=== PATIENT | female | born 1980 | race Caucasian/White ===

== ENCOUNTER 2016-11-28 16:38 | Inpatient (IN) | payer OTHER ==
[~2016-11-28] VITALS: Ht 170.2 cm; Wt 71.0 kg
[2016-11-28] MEDS ORDERED: POTA99TA PO (17:44)
[2016-11-28] MEDS ORDERED: SYNT88TA2 PO (17:44)
[2016-11-28] MEDS ORDERED: ESCI10TA2 PO (17:44)
[2016-11-28] MEDS ORDERED: OLANZapine 5 MG TAB PO PRN (19:15)
[2016-11-28] MEDS ORDERED: MAALOX 30 ML SUSP *UDC PO PRN (19:15)
[2016-11-28] MEDS ORDERED: QUEtiapine FUMARATE 100 MG TAB PO SCH (21:00)
[2016-11-28] MEDS: PALIPERIDONE 3 MG ER TAB (INVEGA) PO SCH (21:00)
[2016-11-28 21:25] VITALS: BP 136/92
[2016-11-29] MEDS: LEVOTHYROXINE 88MCG TABLET (0.088 MG) PO SCH (05:59)
[2016-11-29 06:42] VITALS: BP 138/88
[2016-11-29] MEDS: OMEPRAZOLE 20 MG CAP PO SCH ×2 (09:00→10:51)
[2016-11-29] MEDS: TOPIRAMATE (TopAMAX) 25 MG TAB PO SCH ×2 (09:00→10:51)
[2016-11-29] MEDS: PALIPERIDONE 3 MG ER TAB (INVEGA) PO SCH ×3 (09:00→21:30)
[2016-11-29] MEDS: ESCITALOPRAM OXALATE 10 MG TAB (LEXAPRO) PO SCH ×2 (09:00→10:51)
--- NOTE | 2016-11-29 09:19 | HPEPDOC ---
[facility] Medical History & Physical Date of Admission Nov 28, 2016 History and Physical PCP: none ATTENDING: Dr. Jorge Luis Blackburn HPI: 36yoF transferred from [facility] admitted to [facility] for unspecified psychotic disorder, being medically examined today. Pt is declining to participate with history or PE at this time. History is taken from the chart. PMHx: Hypothyroid GERD Depression Anxiety Insomnia Hypokalemia PSHX: facial surgery oral surgery SOCHX: Resides in: [facility] Marital Status: single Tobacco use: former smoker ETOH: denies Illicit Drugs: Denies IV Drug Use: Denies Tattoos done unprofessionally: Denies FAMHX: pt declines to provide history. ROS: Pt declines to provide history and remarkable only for LMP unknown. PE: Pt declines to participate with exam at this time. [facility]. WBC 6.69 RBC 4.34 Hgb 13.1 HCT 38.9 PLT 183 GLUC 132 BUN 9 SCr 1.080 Cl 102 Na 138 K 3.2 Ca 9.1 ALT 16 AST 17 TSH 5.830 HCG neg toxicology unremarkable. EKG: pending A&P: 36yoF transferred from [facility] admitted to [facility] for unspecified psychotic disorder 1. Psych. Plan per Psychiatry. Obtain baseline EKG to assure the safety of psychiatric medications as they can prolong the QT interval. 2. Follow up. No Primary Care Provider. Will attempt to establish PCP on discharge. 3. Hypothyroid. Continue supplement. TSH noted to be abnormal. Possibly non compliant with supplement. Will recheck TFTs. 4. GERD. Continue PPI. 5. Hypokalemia. Continue supplement. Recheck BMP. 6. Staff member Josephine assisted in attempting to request Pt participate with exam. Vital Signs Vital Signs Date Time Temp Pulse Resp B/P (MAP) Pulse Ox O2 Delivery O2 Flow Rate FiO2 11/29/16 06:42 98.6 89 16 138/88 (105) Room Air 11/28/16 21:25 98 Home Medications Scheduled Escitalopram Oxalate (Escitalopram Oxalate) 10 Mg Tab, 10 MG PO DAILY Levothyroxine Sodium (Synthroid) 88 Mcg Tab, 88 MCG PO DAILY Potassium (Potassium) 99 Mg Tab, 99 MG PO QHS Allergies Coded Allergies: No Known Allergies (Unverified , 11/28/16) Lizz Barber Nov 29, 2016 09:19
[2016-11-29] MEDS ORDERED: HALOPERIDOL 5 MG TAB PO PRN (10:00)
[2016-11-29] MEDS ORDERED: diphenhydrAMINE 50 MG CAP PO PRN ×2 (10:00→17:45)
[2016-11-29] MEDS ORDERED: hydrOXYzine 50 MG TAB PO PRN (10:15)
[2016-11-29] MEDS ORDERED: traZODone 50 MG TAB PO PRN (10:15)
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
[2016-11-29] MEDS: POTASSIUM CHLORIDE 10 MEQ SR TABLET PO SCH (10:51)
[2016-11-29 18:00] VITALS: BP 122/83
[2016-11-30 06:00] VITALS: BP 118/60
[2016-11-30] MEDS: LEVOTHYROXINE 88MCG TABLET (0.088 MG) PO SCH (06:01)
--- NOTE | 2016-11-30 07:01 | ECGEPIP ---
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
[2016-11-30] MEDS: ESCITALOPRAM OXALATE 10 MG TAB (LEXAPRO) PO SCH (09:00)
[2016-11-30] MEDS: POTASSIUM CHLORIDE 10 MEQ SR TABLET PO SCH (09:00)
[2016-11-30] MEDS: PALIPERIDONE 3 MG ER TAB (INVEGA) PO SCH ×2 (09:00→20:43)
[2016-11-30] MEDS: OMEPRAZOLE 20 MG CAP PO SCH (09:00)
[2016-11-30 09:13] LABS: ANION GAP 8 MEQ/L (8-16); BLOOD UREA NITROGEN 6 MG/DL (7-18); CALCIUM LEVEL 9.8 MG/DL (8.5-10.1); CARBON DIOXIDE LEVEL 28 MEQ/L (21-32); CHLORIDE LEVEL 103 MEQ/L (98-107); CREATININE FOR GFR 1.03 MG/DL (0.55-1.02); GLOMERULAR FILTRATION RATE > 60.0 (>60); GLUCOSE, FASTING 140 MG/DL (70-105); POTASSIUM SERUM 3.8 MEQ/L (3.5-5.1); SODIUM LEVEL 139 MEQ/L (136-145); T UPTAKE 37 % (30-39); THYROXINE (T4) 10.4 UG/DL (4.5-12.0)
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
[2016-11-30 18:00] VITALS: BP 122/78
[2016-11-30] MEDS: ACETAMINOPHEN TAB 650MG DOSE (2X325MG) PO PRN (19:20)
[2016-12-01] MEDS: LEVOTHYROXINE 88MCG TABLET (0.088 MG) PO SCH (06:13)
[2016-12-01 06:35] VITALS: BP 112/64
--- NOTE | 2016-12-01 08:35 | IPNPDOC ---
Date Seen The patient was seen on 12/01/16. Progress Note PCP: none ATTENDING: Dr. Jorge Luis Blackburn HPI: 36yoF transferred from [facility] admitted to [facility] for unspecified psychotic disorder, being medically examined today. Pt is reporting that she has noted left flank pain radiating to the left abdomen area. She has also noted dysuria. She denies hematuria, frequency, urgency. She denies fevers or chills. She denies nausea, vomiting, diarrhea, constipation. She has been eating and drinking. PMHx: Hypothyroid GERD Depression Anxiety Insomnia Hypokalemia PSHX: facial surgery oral surgery PE: GEN: 36yoF, appears stated age. No acute distress. Alert and oriented x 3. Anxious appearing. HEENT: Normocephalic, atraumatic. Pupils are equal, round, and reactive to light. Extraocular movements are intact. No nystagmus appreciated. Sclera are nonicteric. Conjunctiva without injection. Nose midline. Nasal turbinates without bogginess. No facial asymmetry. Moist mucous membranes. Dentition fair. Pharynx pink and moist, no cobblestoning. Neck supple, trachea midline. No lymphadenopathy or thyromegaly appreciated. CHEST: Regular rate and rhythm, +S1, +S2 LUNGS: Clear to auscultation bilaterally. No wheezes, rales, or rhonchi. Breathing appears symmetric and easy. Patient is speaking in full sentences. No accessory muscle use. ABD: Round, soft, TTP LUQ/LLQ, non-distended. +Bowel sounds throughout. No rebound or guarding. Left Costovertebral angle tenderness noted. EXT: Pulses 2+ bilaterally dorsalis pedis and radial. No lower extremity edema appreciated. SKIN: Many, dry, warm. Capillary refill <2sec. No rashes. NEURO: Alert and oriented x 3. Cranial nerves III-XII are intact. No focal deficits appreciated. EKG 11/29/16 SINUS RHYTHM LEFT AXIS DEVIATION Left anterior fascicular block NO PRIOR NSSTTWA A&P: 36yoF transferred from [facility] admitted to [facility] for unspecified psychotic disorder 1. Psych. Plan per Psychiatry. EKG on file. 2. Follow up. No Primary Care Provider. Will attempt to establish PCP on discharge. 3. Hypothyroid. Continue supplement. TSH noted to be abnormal. Pt has been non compliant with supplement. Plan to recheck TFTs 4 weeks. 4. GERD. Continue PPI. 5. Hypokalemia. Continue supplement. Recheck CMP. 6. Left flank pain/abdominal pain. UA/urine culture obtained. Update CBC with differential/CMP, Amylase. Check CT scan abdomen and pelvis. Tylenol as needed. Encourage po fluids. 7. Staff member Citlali present throughout exam. VS, I&O, 24H, Fishbone Vital Signs/I&O Vital Signs Date Time Temp Pulse Resp B/P (MAP) Pulse Ox O2 Delivery O2 Flow Rate FiO2 12/01/16 06:35 98.4 95 16 112/64 (80) 11/29/16 06:42 Room Air 11/28/16 21:25 98 Lizz Barber Dec 01, 2016 08:35
[2016-12-01] MEDS ORDERED: INFLUENZA QUADRIVALENT PF VACCINE 0.5ML SYRINGE (90686) IM ONE (09:00)
[2016-12-01] MEDS: ESCITALOPRAM OXALATE 10 MG TAB (LEXAPRO) PO SCH (09:33)
[2016-12-01] MEDS: OMEPRAZOLE 20 MG CAP PO SCH (09:33)
[2016-12-01] MEDS: PALIPERIDONE 3 MG ER TAB (INVEGA) PO SCH ×2 (09:33→20:04)
[2016-12-01] MEDS: POTASSIUM CHLORIDE 10 MEQ SR TABLET PO SCH (09:34)
[2016-12-01 10:13] LABS: AMYLASE 28 U/L (25-115)
[2016-12-01 10:52] LABS: ALBUMIN 4.1 GM/DL (3.2-5.2); ALBUMIN/GLOBULIN RATIO 1.11 (1.00-1.93); ALKALINE PHOSPHATASE 57 U/L (45-117); ALT/SGPT 19 U/L (12-78); ANION GAP 11 MEQ/L (8-16); AST/SGOT 12 U/L (15-37); BILIRUBIN,TOTAL 0.4 MG/DL (0.2-1.0); BLOOD UREA NITROGEN 8 MG/DL (7-18); CARBON DIOXIDE LEVEL 25 MEQ/L (21-32); CHLORIDE LEVEL 105 MEQ/L (98-107); CREATININE FOR GFR 0.93 MG/DL (0.55-1.02); GLOMERULAR FILTRATION RATE > 60.0 (>60); GLUCOSE, FASTING 122 MG/DL (70-105); POTASSIUM SERUM 3.7 MEQ/L (3.5-5.1); SODIUM LEVEL 141 MEQ/L (136-145); TOTAL PROTEIN 7.8 GM/DL (6.4-8.2)
[2016-12-01 11:06] LABS: BASO % 0.2 % (0.0-1.0); EOS % 0.4 % (0.0-3.0); IMMATURE GRANULOCYTE % 0.2 % (0-0); LYMPH # 1.2 10^3/uL (1.5-4.5); LYMPH % 27.4 % (24.0-44.0); MEAN CORPUSCULAR HEMOGLOBIN 30.3 pg (27.0-33.0); MEAN CORPUSCULAR HGB CONC 33.8 g/dl (32.0-36.5); MEAN CORPUSCULAR VOLUME 89.6 fl (80.0-96.0); MONO # 0.5 10^3/uL (0.0-0.8); MONO % 10.3 % (0.0-5.0); NEUTROPHILS # 2.7 10^3/uL (1.8-7.7); NEUTROPHILS % 61.5 % (36.0-66.0); PLATELET COUNT, AUTOMATED 195 10^3/uL (150-450); RED CELL DISTRIBUTION WIDTH 12.8 % (11.5-14.5); WHITE BLOOD COUNT 4.5 10^3/uL (4.0-10.0)
--- NOTE | 2016-12-01 11:33 | REP ---
CT abdomen and pelvis without IV or oral contrast: Renal stone protocol. History: Abdominal and left flank pain. 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 The lung bases are clear except for a small zone of linear plate-like atelectasis in the left lower lobe. The liver and spleen are normal in size. There is a tiny low density cyst in the dome of the liver. Under a centimeter in diameter. No gallbladder abnormality is seen. No pancreatic abnormalities observed. The adrenal glands are normal. There is no evidence of hydronephrosis on either side. No intrarenal calculus is seen. No ureteral stone is seen. No bladder calculus is observed. No uterine or ovarian abnormality is seen. A normal appendix is seen in the right superior pelvis. No abdominal wall defect is seen. Bone window settings show no bony destructive lesion. There is a small plaque-like dystrophic calcification in the perirectal fat to the left of midline. Impression: No acute intra-abdominal abnormality. Normal appendix seen. No urinary tract calculus noted. No hydronephrosis. Signed by Bradley Rodriguez MD 12/01/2016 12:00 P
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
[2016-12-01] MEDS ORDERED: PALIPERIDONE PALMITATE 234 MG/1.5 ML INJ (INVEGA SUSTENNA)(J2426) IM ONE (13:00)
[2016-12-01 18:50] VITALS: BP 125/76
[2016-12-01] MEDS: MOM 30ML SUSPENSION UDC PO PRN (21:27)
[2016-12-02] MEDS: LEVOTHYROXINE 88MCG TABLET (0.088 MG) PO SCH (06:16)
[2016-12-02 07:07] VITALS: BP 126/71
[2016-12-02] MEDS: PALIPERIDONE 3 MG ER TAB (INVEGA) PO SCH (08:34)
[2016-12-02] MEDS: POTASSIUM CHLORIDE 10 MEQ SR TABLET PO SCH (08:34)
[2016-12-02] MEDS: ESCITALOPRAM OXALATE 10 MG TAB (LEXAPRO) PO SCH (08:34)
[2016-12-02] MEDS: OMEPRAZOLE 20 MG CAP PO SCH (08:34)
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
[2016-12-02 18:00] VITALS: BP 128/78
[2016-12-03] MEDS: LEVOTHYROXINE 88MCG TABLET (0.088 MG) PO SCH ×2 (06:00→06:11)
[2016-12-03 07:09] VITALS: BP 130/79
[2016-12-03] MEDS: MOM 30ML SUSPENSION UDC PO PRN (08:26)
[2016-12-03] MEDS: OMEPRAZOLE 20 MG CAP PO SCH (08:26)
[2016-12-03] MEDS: ESCITALOPRAM OXALATE 10 MG TAB (LEXAPRO) PO SCH (08:26)
[2016-12-03] MEDS: POTASSIUM CHLORIDE 10 MEQ SR TABLET PO SCH (08:26)
[2016-12-03] MEDS: ACETAMINOPHEN TAB 650MG DOSE (2X325MG) PO PRN (11:29)
[2016-12-03 18:00] VITALS: BP 137/84
[2016-12-04] MEDS: LEVOTHYROXINE 88MCG TABLET (0.088 MG) PO SCH (05:56)
[2016-12-04 07:15] VITALS: BP 125/82
[2016-12-04] MEDS: OMEPRAZOLE 20 MG CAP PO SCH (08:16)
[2016-12-04] MEDS: POTASSIUM CHLORIDE 10 MEQ SR TABLET PO SCH (08:17)
[2016-12-04] MEDS: ESCITALOPRAM OXALATE 10 MG TAB (LEXAPRO) PO SCH (08:17)
[2016-12-04 18:00] VITALS: BP 142/81
[2016-12-05] MEDS: LEVOTHYROXINE 88MCG TABLET (0.088 MG) PO SCH (06:02)
[2016-12-05 06:41] VITALS: BP 128/81
[2016-12-05] MEDS: OMEPRAZOLE 20 MG CAP PO SCH (08:40)
[2016-12-05] MEDS: POTASSIUM CHLORIDE 10 MEQ SR TABLET PO SCH (08:41)
[2016-12-05] MEDS: ESCITALOPRAM OXALATE 10 MG TAB (LEXAPRO) PO SCH (08:41)
[2016-12-05] MEDS ORDERED: PALIPERIDONE PALMITATE 156 MG/1ML INJ(INVEGA SUSTENNA)(J2426) IM ONE (16:30)
[2016-12-05 18:00] VITALS: BP 134/83
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
[2016-12-05] MEDS: ACETAMINOPHEN TAB 650MG DOSE (2X325MG) PO PRN (20:10)
[2016-12-06] MEDS: LEVOTHYROXINE 88MCG TABLET (0.088 MG) PO SCH (06:04)
[2016-12-06 06:42] VITALS: BP 136/83
[2016-12-06] MEDS: POTASSIUM CHLORIDE 10 MEQ SR TABLET PO SCH (08:21)
[2016-12-06] MEDS: ESCITALOPRAM OXALATE 10 MG TAB (LEXAPRO) PO SCH (08:21)
[2016-12-06] MEDS: OMEPRAZOLE 20 MG CAP PO SCH (08:21)
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
[2016-12-08] MEDS ORDERED: PALIPERIDONE PALMITATE 156 MG/1ML INJ(INVEGA SUSTENNA)(J2426) IM ONE (16:30)
== END 2016-12-06 15:45 | disposition home or self-care (01) | DRG 751 ==
LOC: M ED 16:38 → M ED INP 19:05 → M PSY 21:20
PROVIDERS: ADMIT Psychiatry & Neurology Psychiatry; ATTEND Psychiatry & Neurology Psychiatry
DX: F29 Unspecified psychosis not due to a substance or known physiological condition (principal); E03.9 Hypothyroidism, unspecified; F43.10 Post-traumatic stress disorder, unspecified; K21.9 Gastro-esophageal reflux disease without esophagitis; E87.6 Hypokalemia; Z79.899 Other long term (current) drug therapy; Z87.891 Personal history of nicotine dependence; R10.32 Left lower quadrant pain